=== PATIENT | female | born 1950 | race Caucasian/White ===

== ENCOUNTER → 2016-06-25 | Outpatient (CLI) | payer MEDICARE, OTHER ==
[~2016-06-25] MED LIST: DENOSUMAB 60 MG/ML 1 ML SYRINGE SQ ONE
[2016-06-25 11:00] VITALS: BP 118/60; PULSE 73; RESP 16; TEMP 98.1
== END | disposition home or self-care (01) ==
LOC: PROCWHC3 10:29
PROVIDERS: ATTEND Family Medicine
DX: M81.0 Age-related osteoporosis without current pathological fracture (principal)
CPT/HCPCS: 96372; J0897

== ENCOUNTER → 2017-07-07 | Outpatient (CLI) | payer MEDICARE, BC ==
[~2017-07-07] MED LIST changes: +DENOSUMAB 60 MG/ML 1 ML SYRINGE SQ NR; -DENOSUMAB 60 MG/ML 1 ML SYRINGE SQ ONE
[2017-07-07 10:16] VITALS: BP 88/60; PULSE 91; RESP 16; TEMP 97.6
== END | disposition home or self-care (01) ==
LOC: PROCWHC3 10:00
PROVIDERS: ATTEND Family Medicine
DX: M81.0 Age-related osteoporosis without current pathological fracture (principal)
CPT/HCPCS: 96372; J0897

== ENCOUNTER 2017-08-04 06:58 | Day surgery (SDC) | payer MEDICARE, BC ==
[2017-08-03 08:36] VITALS: BMI 18.8
[~2017-08-04 06:58] MED LIST changes: -DENOSUMAB 60 MG/ML 1 ML SYRINGE SQ NR; +LACTATED RINGERS 1,000 ML IV SCH
[2017-08-04 07:16] VITALS: RESP 16; TEMP 97.5
[2017-08-04] MEDS ORDERED: PROPOFOL 10 MG/ML 20 ML VIAL IV ONE (07:40)
[2017-08-04] MEDS ORDERED: LIDOCAINE 1% INJ 10MG/ML (20 ML MDV) ONE (07:40)
--- NOTE | 2017-08-04 07:59 | P.GSHP ---
History of Present Illness H&P Date: 08/04/17 Chief Complaint: Screening colonoscopy This is a 67-year-old female who presents today for screening colonoscopy. She denies a significant GI complaints. Past Medical History Past Medical History: COPD, Hypertension, Musculoskeletal Disorder, Osteoarthritis (OA), Pneumonia, Thyroid Disorder Additional Past Medical History / Comment(s): Bone spurs, History of Any Multi-Drug Resistant Organisms: None Reported Past Surgical History: Hysterectomy, Orthopedic Surgery Additional Past Surgical History / Comment(s): right hip-TASIA INSERTED Past Anesthesia/Blood Transfusion Reactions: No Reported Reaction Smoking Status: Former smoker - Past Family History Father Family Medical History: Cancer Medications and Allergies Home Medications Medication Instructions Recorded Confirmed Type Gabapentin [Neurontin] 300 mg PO TID PRN 06/19/15 08/04/17 History Levothyroxine Sodium [Synthroid] 25 mcg PO DAILY 06/19/15 08/04/17 History Megestrol Acetate [Megace Es] 5 mg PO DAILY PRN 06/19/15 08/04/17 History Hydrocodone/Acetaminophen [[place] 1 tab PO DAILY PRN 12/25/15 08/04/17 History 7.5-325] Ergocalciferol (Vitamin D2) 50,000 unit PO MO 06/25/16 08/04/17 History [Vitamin D2] Multivitamins, Thera [Multivitamin 1 tab PO DAILY 06/25/16 08/04/17 History (formulary)] Aclidinium [place] [Tudorza 1 puff PO DAILY 08/03/17 08/04/17 History Pressair] Lisinopril [Zestril] 10 mg PO HS 08/03/17 08/04/17 History Allergies Allergy/AdvReac Type Severity Reaction Status Date / Time codeine Allergy Unknown Verified 08/03/17 08:14 Surgical - Exam Vital Signs Temp Pulse Resp BP Pulse Ox 97.5 F L 75 16 122/76 97 08/04/17 07:14 08/04/17 07:14 08/04/17 07:14 08/04/17 07:14 08/04/17 07:14 - General well developed, no distress - Eyes PERRL - ENT normal pinna - Neck no masses - Respiratory normal expansion - Cardiovascular Rhythm: regular - Abdomen Abdomen: soft, non tender Assessment and Plan Assessment: We'll perform screening colonoscopy.
--- NOTE | 2017-08-04 08:12 | P.OP ---
Date of Procedure: 08/04/17 Preoperative Diagnosis: Screening colonoscopy Postoperative Diagnosis: Normal colonoscopy Procedure(s) Performed: Colonoscopy Anesthesia: MAC Surgeon: Carl Wheeler Pathology: none sent Condition: stable Disposition: PACU Description of Procedure: PROCEDURE: The patient was placed on the endoscopy table in the lateral position. Digital rectal examination was performed which revealed no abnormalities. s. Flexible colonoscope was then placed in the patient's anus and passed throughout the entire colon. The ileocecal valve was visualized. The cecum, ascending, transverse, descending and sigmoid colon were normal. The rectum was normal as well. There were no masses, polyps or diverticula noted in the entire colon. SUMMARY OF FINDINGS: Normal colonoscopy.
[2017-08-04 08:35] VITALS: BP 139/78; PULSE 69
== END 2017-08-04 08:56 | disposition home or self-care (01) ==
LOC: ORWHC2ENDO 06:58
PROVIDERS: ATTEND Surgery
DX: Z12.11 Encounter for screening for malignant neoplasm of colon (principal); J44.9 Chronic obstructive pulmonary disease, unspecified; I10 Essential (primary) hypertension; M19.90 Unspecified osteoarthritis, unspecified site; E07.9 Disorder of thyroid, unspecified; Z79.890 Hormone replacement therapy; Z79.899 Other long term (current) drug therapy; Z88.5 Allergy status to narcotic agent; Z87.891 Personal history of nicotine dependence
CPT/HCPCS: J2001; J2704; G0121; 45378

== ENCOUNTER → 2017-09-11 | Day surgery (SDC) | payer MEDICARE, BC ==
[2017-09-07 15:14] VITALS: BMI 18.8
[~2017-09-11] MED LIST changes: +BUPIVACAINE (PF) 0.5% 30 ML VIAL SQ ONE; +DEXAMETHASONE SOD PHOSPHATE 10 MG/ML 1 ML VIAL IV ONE; +GLYCOPYRROLATE 0.2 MG/ML 2 ML VIAL ONE; +HEPARIN SODIUM,PORCINE 5,000 UNIT/ML 1 ML VIAL SQ ONE; +KETOROLAC 30 MG/ML 1 ML VIAL ONE; +LACTATED RINGERS 1,000 ML IV ONE; -LACTATED RINGERS 1,000 ML IV SCH; +LIDOCAINE 1% 20 ML VIAL (10MG/ML) FOR IV START INTRADERMA ONE; +LIDOCAINE 1% INJ 10MG/ML (20 ML MDV) ONE; +MIDAZOLAM 2 MG/2 ML VIAL ONE; +NEOSTIGMINE 1 MG/ML 10 ML VIAL ONE; +ONDANSETRON 4 MG/2 ML VIAL IVP ONE; +PROPOFOL 10 MG/ML 20 ML VIAL IV ONE; +ROCURONIUM BROMIDE 10 MG/ML 10 ML VIAL IV ONE; +SUCCINYLCHOLINE CHLORIDE 100 MG/5 ML SYR IV ONE; +ceFAZolin IN SWFI 2 GM/20 ML SYRINGE IVP ONE; +fentaNYL (PF) 50 MCG/ML 2 ML AMP ONE
[2017-09-11 09:29] VITALS: RESP 16
--- NOTE | 2017-09-11 09:54 | P.GSHP ---
History of Present Illness H&P Date: 09/11/17 Chief Complaint: Right upper quadrant pain This is a 67-year-old female referred from Dr. Alejandra Hamlin. Patient had complaints of right quadrant pain. She presents today for laparoscopic cholecystectomy for chronic cholecystitis. Past Medical History Past Medical History: COPD, Hypertension, Musculoskeletal Disorder, Osteoarthritis (OA), Thyroid Disorder Additional Past Medical History / Comment(s): Bone spurs, Hx of pneumonia History of Any Multi-Drug Resistant Organisms: None Reported Past Surgical History: Hysterectomy, Orthopedic Surgery Additional Past Surgical History / Comment(s): right hip-TASIA INSERTED ; Colonoscopy Past Anesthesia/Blood Transfusion Reactions: No Reported Reaction Smoking Status: Former smoker - Past Family History Father Family Medical History: Cancer Medications and Allergies Home Medications Medication Instructions Recorded Confirmed Type Gabapentin [Neurontin] 300 mg PO TID PRN 06/19/15 09/11/17 History Levothyroxine Sodium [Synthroid] 25 mcg PO HS 06/19/15 09/11/17 History Megestrol Acetate [Megace Es] 5 mg PO DAILY PRN 06/19/15 09/11/17 History Hydrocodone/Acetaminophen [[place] 1 tab PO DAILY PRN 12/25/15 09/11/17 History 7.5-325] Ergocalciferol (Vitamin D2) 50,000 unit PO MO 06/25/16 09/11/17 History [Vitamin D2] Multivitamins, Thera [Multivitamin 1 tab PO DAILY 06/25/16 09/11/17 History (formulary)] Aclidinium [place] [Tudorza 1 puff PO DAILY 08/03/17 09/11/17 History Pressair] Lisinopril [Zestril] 10 mg PO HS 08/03/17 09/11/17 History Allergies Allergy/AdvReac Type Severity Reaction Status Date / Time codeine Allergy Unknown Verified 09/11/17 09:29 Surgical - Exam Vital Signs Temp Pulse Resp BP Pulse Ox 97.4 F L 68 16 141/65 98 09/11/17 09:25 09/11/17 09:25 09/11/17 09:25 09/11/17 09:25 09/11/17 09:25 - General well developed, no distress - Eyes PERRL - ENT normal pinna - Neck no masses - Respiratory normal expansion - Cardiovascular Rhythm: regular - Abdomen Abdomen: soft, non tender Assessment and Plan Assessment: Chronic cholecystitis Right upper quadrant pain We'll perform laparoscopic cholecystectomy
[2017-09-11 11:37] VITALS: TEMP 96.9
[2017-09-11] MEDS: HYDROmorphone 0.5 MG/0.5 ML SYRINGE IVP ONE ×3 (11:55→12:20)
--- NOTE | 2017-09-11 12:15 | P.OP ---
Date of Procedure: 09/11/17 Preoperative Diagnosis: Cholecystitis Postoperative Diagnosis: Cholecystitis Procedure(s) Performed: Laparoscopic cholecystectomy Anesthesia: CHARLA Surgeon: Carl Wheeler Estimated Blood Loss (ml): 5 Pathology: other (All bladder) Condition: stable Disposition: PACU Description of Procedure: The patient was placed on the operating table. The patient received a general endotracheal tube anesthesia. The patients abdomen was prepped and draped in the usual sterile fashion. Through an infraumbilical stab incision, the fascia of the anterior abdominal wall was grasped with a pair of Kochers and then the Veress needle was placed in the peritoneal cavity. Position of the Veress needle was confirmed with positive drop test. The abdomen was then insufflated. After adequate insufflation, the 10 mm trocar was placed in the peritoneal cavity. Following this the laparoscope was placed in the peritoneal cavity. The patient was placed in the head-up, right side up position and then a 5 mm trocar was placed in the right lateral and right subcostal position under direct visualization. A 8 mm trocar was placed in the epigastric position. The gallbladder was grasped in the fundus and infundibulum. Traction on the gallbladder was placed in the lateral and the cephalad positions. The triangle of Calot was visualized.. The cystic duct was bluntly dissected until the union of the cystic duct and common bile duct was seen. The cystic duct was then divided and sealed with the Harmonic scissors. A PDS Endoloop was then placed throughout the cystic duct stump. The cystic artery divided and sealed with the Harmonic scissors. The gallbladder was then removed from the liver bed using Harmonic scissors. The gallbladder was then extracted through the epigastric port site. Operative field was checked for any bleeding spots and Harmonic scissors was used to coagulate the liver bed. The abdomen was irrigated. The trocars were removed. The skin was closed using interrupted 3-0 Vicryl suture. Dermabond dressing were applied. The patient tolerated the procedure well.
[2017-09-11 14:11] VITALS: BP 114/72; PULSE 53
== END | disposition home or self-care (01) ==
LOC: OR 09:04
PROVIDERS: ATTEND Surgery
DX: K80.10 Calculus of gallbladder with chronic cholecystitis without obstruction (principal); I10 Essential (primary) hypertension; J44.9 Chronic obstructive pulmonary disease, unspecified; E07.9 Disorder of thyroid, unspecified; M19.90 Unspecified osteoarthritis, unspecified site; Z88.5 Allergy status to narcotic agent; Z79.890 Hormone replacement therapy; Z79.899 Other long term (current) drug therapy; Z87.891 Personal history of nicotine dependence; Z80.9 Family history of malignant neoplasm, unspecified
CPT/HCPCS: 47562; 88304; J2250; J1644; J1100; J2710; J2405; J2001; J3010; J1885; J0330; J2704; J1170; J0690

== ENCOUNTER → 2018-01-07 | Outpatient (CLI) | payer MEDICARE, BC ==
[~2018-01-07] MED LIST changes: -BUPIVACAINE (PF) 0.5% 30 ML VIAL SQ ONE; +DENOSUMAB 60 MG/ML 1 ML SYRINGE SQ ONE; -DEXAMETHASONE SOD PHOSPHATE 10 MG/ML 1 ML VIAL IV ONE; +DIPH,PERTUS(ACELL)TETVAC-LF 0.5 ML VIAL IM ONE; -GLYCOPYRROLATE 0.2 MG/ML 2 ML VIAL ONE; -HEPARIN SODIUM,PORCINE 5,000 UNIT/ML 1 ML VIAL SQ ONE; -KETOROLAC 30 MG/ML 1 ML VIAL ONE; -LACTATED RINGERS 1,000 ML IV ONE; -LIDOCAINE 1% 20 ML VIAL (10MG/ML) FOR IV START INTRADERMA ONE; -LIDOCAINE 1% INJ 10MG/ML (20 ML MDV) ONE; -MIDAZOLAM 2 MG/2 ML VIAL ONE; -NEOSTIGMINE 1 MG/ML 10 ML VIAL ONE; -ONDANSETRON 4 MG/2 ML VIAL IVP ONE; -PROPOFOL 10 MG/ML 20 ML VIAL IV ONE; -ROCURONIUM BROMIDE 10 MG/ML 10 ML VIAL IV ONE; -SUCCINYLCHOLINE CHLORIDE 100 MG/5 ML SYR IV ONE; -ceFAZolin IN SWFI 2 GM/20 ML SYRINGE IVP ONE; -fentaNYL (PF) 50 MCG/ML 2 ML AMP ONE
[2018-01-07 10:31] VITALS: BP 113/71; PULSE 80; TEMP 97.9
== END | disposition home or self-care (01) ==
LOC: PROCWHC3 09:55
PROVIDERS: ATTEND Family Medicine
DX: J44.9 Chronic obstructive pulmonary disease, unspecified (principal); M81.0 Age-related osteoporosis without current pathological fracture; Z23 Encounter for immunization
CPT/HCPCS: 90715; 90471; 96372; J0897

== ENCOUNTER → 2018-07-13 | Outpatient (CLI) | payer MEDICARE, BC ==
[~2018-07-13] MED LIST changes: -DIPH,PERTUS(ACELL)TETVAC-LF 0.5 ML VIAL IM ONE
[2018-07-13 13:49] VITALS: BP 139/69; PULSE 91; RESP 16; TEMP 97.9
== END ==
LOC: PROCWHC3 13:15
PROVIDERS: ATTEND Family Medicine
DX: M81.0 Age-related osteoporosis without current pathological fracture (principal)
CPT/HCPCS: 96372; J0897

== ENCOUNTER → 2019-01-13 | Outpatient (CLI) | payer MEDICARE, BC ==
[~2019-01-13] MED LIST changes: +DENOSUMAB 60 MG/ML 1 ML SYRINGE SQ NR; -DENOSUMAB 60 MG/ML 1 ML SYRINGE SQ ONE
[2019-01-13 13:36] VITALS: RESP 18
[2019-01-13 14:27] VITALS: BP 138/76; PULSE 84; TEMP 98
== END ==
LOC: PROCWHC3 13:25
PROVIDERS: ATTEND Family Medicine
DX: M81.0 Age-related osteoporosis without current pathological fracture (principal)
CPT/HCPCS: 96372; J0897

== ENCOUNTER → 2019-07-19 | Outpatient (CLI) | payer MEDICARE, BC ==
[2019-07-19 11:35] VITALS: BP 160/90; PULSE 100; RESP 16; TEMP 98
== END | disposition home or self-care (01) ==
LOC: PROCWHC3 11:21
PROVIDERS: ATTEND Family Medicine
DX: M81.0 Age-related osteoporosis without current pathological fracture (principal)
CPT/HCPCS: 96372; J0897

== ENCOUNTER → 2020-01-23 | Outpatient (CLI) | payer BC, MEDICARE ==
[~2020-01-23] MED LIST changes: -DENOSUMAB 60 MG/ML 1 ML SYRINGE SQ NR; +DENOSUMAB 60 MG/ML 1 ML SYRINGE SQ ONE
[2020-01-23 10:01] VITALS: BP 145/72; PULSE 82; RESP 16; TEMP 97.9
== END | disposition home or self-care (01) ==
LOC: PROCWHC3 09:53
PROVIDERS: ATTEND Family Medicine
DX: M81.0 Age-related osteoporosis without current pathological fracture (principal)
CPT/HCPCS: 96372; J0897

== ENCOUNTER → 2020-07-23 | Outpatient (CLI) | payer MEDICARE, OTHER ==
[~2020-07-23] MED LIST changes: +DENOSUMAB 60 MG/ML 1 ML SYRINGE SQ NR; -DENOSUMAB 60 MG/ML 1 ML SYRINGE SQ ONE
[2020-07-23 08:09] VITALS: BP 148/72; PULSE 82; RESP 16; TEMP 98.2
== END ==
LOC: PROCWHC3 07:54
PROVIDERS: ATTEND Family Medicine
DX: M81.0 Age-related osteoporosis without current pathological fracture (principal); Z87.891 Personal history of nicotine dependence
CPT/HCPCS: 96372; J0897

== ENCOUNTER → 2021-01-25 | Outpatient (CLI) | payer MEDICARE, OTHER ==
[2021-01-25 09:28] VITALS: BP 133/73; PULSE 65; RESP 16; TEMP 98.2
== END ==
LOC: PROCWHC3 08:41
PROVIDERS: ATTEND Physician Assistant
DX: M81.0 Age-related osteoporosis without current pathological fracture (principal); Z88.5 Allergy status to narcotic agent; Z87.891 Personal history of nicotine dependence

== ENCOUNTER → 2021-11-11 | Outpatient (CLI) | payer BC, MEDICARE ==
[~2021-11-11] MED LIST changes: -DENOSUMAB 60 MG/ML 1 ML SYRINGE SQ NR; +REGADENOSON 0.4 MG/5 ML SYRINGE IV PRN
--- NOTE | 2021-11-11 13:46 | CA ---
Lexiscan Nuclear Stress Test Report Name: Mirtha Solis Exam Date: 11/11/2021 09:43 Exam Location: [place] Stress Ht (in): 65 Wt (lb): 129 BSA: 1.64 Ordering Phys: Augusta Keys DO Referring Phys: Nicky Abbott PAC Technologist: Mic Pitts Age: 71 Gender: F : 1950 Procedure CPT: Indications: I10 I20.8 I25.10 R06.09 ICD-10 Codes: Patient History: Medications: SEE LIST Meds past 24 hrs: Pretest Chest Pain: STRESS TEST Lexiscan Protocol Exercise Duration (min:sec): 02:[address] Depressions (mm): Angina Score: Jaramillo Score: Resting HR (bpm): 76 Peak HR (bpm): 101 Resting BP (mmHg): 131 / 69 Peak BP (mmHg): 140 / 63 MPHR: 151 Target HR: 128 % MPHR: 67 METS: 1.0 Total Dose: Peak Dose: Atropine: Double Product: 55335 BP Response: Stress Termination: PROTOCOL COMPLETE Stress Symptoms: NO SYMPTOMS Stress Summary: ECG ANALYSIS Resting ECG: Stress ECG: CONCLUSIONS At baseline EKG showed normal sinus rhythm, normal axis, no significant ST or T wave abnormalities. Patient recieved IV infusion of Lexiscan 0.4mg and at peak infusion EKG showed no significant change from baseline. Conclusions: 1. Normal EKG response to Lexiscan infusion 2. Nuclear imaging to be reported separately. Dr. Ramin Madison DO (Electronically Signed) Final Date: 11 November 2021 13:45
--- NOTE | 2021-11-11 14:43 | NM ---
EXAMINATION TYPE: NM stress lexiscan cardiolite DATE OF EXAM: 11/11/2021 COMPARISON: NONE HISTORY: Chest pain TECHNIQUE: After the intravenous administration of 9.4 mCi Tc 99m Sestamibi - Cardiolite resting SPE CT images acquired 45 minutes post injection. The patient received 0.4mg Lexiscan, 24.8 mCi Tc 99m Sestamibi - Stress images obtained [address] injection FINDINGS: Review of stress and rest SPECT images demonstrates no distinct perfusion abnormality. Gated analysi s shows normal wall motion with an estimated left ventricular ejection fraction of 74 %. IMPRESSION: No scintigraphic evidence for reversible ischemia.
== END | disposition home or self-care (01) ==
LOC: RADNMMAIN 07:47
PROVIDERS: ATTEND Family Medicine
DX: I25.10 Atherosclerotic heart disease of native coronary artery without angina pectoris (principal); I10 Essential (primary) hypertension
CPT/HCPCS: 93017; 78452; A9500; J2785

== ENCOUNTER → 2023-12-17 | Outpatient (CLI) | payer BC, MEDICARE ==
--- NOTE | 2023-12-17 10:51 | CTL ---
EXAMINATION TYPE: CT Low Dose Lung DATE OF EXAM ORDERED: 12/17/2023 HISTORY: . Lung cancer screening CT DLP: [address] CTDI: 1.2 mGy Automated exposure control for dose reduction was used. SCREENING VISIT: COMPARISON: None TECHNIQUE: Low dose computed tomography scan was performed through the chest at 1 mm thick sections a nd reconstructed images in multiple planes at 1 mm and [address] DIAGNOSTIC QUALITY: Satisfactory FINDINGS: Biapical pleural thickening and scarring with calcification likely postinflammatory diffuse emphysema tous changes. There are subpleural pulmonary micronodules reference image 48 series 6. An reference i mage 40 series 6. There is a new nodule in the left upper lobe measuring 9.5 mm. Additional punctate 1 to 2 mm nodule right lower lobe image 34 series 6, image 48 series 6 No consolidative pneumonia or pleural effusion. Trace pericardial fluid. There is atherosclerotic changes aorta. Dense coronary artery calcification. Assessment for adenopathy limited. Grossly no pathologic adenopathy. There is mild degenerative gallagher ge of the spine. IMPRESSION: 1. New 9.5 mm nodule left upper lobe recommend CT scan. 2. Additional pulmonary micronodules which benign appearance. 3. COPD 4. Biapical pleural scarring with calcification likely postinflammatory although inhalational\asbesto s related disease in the differential diagnosis. CT LUNG RAD AND CT CHEST RECOMMENDATION: Lung-Rad 4A Suspicious: Follow-up 3 month LDCT or PET/CT may be used when there is a > 8 mm solid component. [facility], , 12/17/2023 10:49 AM
== END | disposition home or self-care (01) ==
LOC: RADCTMAIN 06:44
PROVIDERS: ATTEND Family Medicine
DX: Z12.2 Encounter for screening for malignant neoplasm of respiratory organs (principal); J44.9 Chronic obstructive pulmonary disease, unspecified; J98.4 Other disorders of lung; Z87.891 Personal history of nicotine dependence
CPT/HCPCS: 71271